=== PATIENT | male | born 1995 | race Caucasian/White ===

== ENCOUNTER 2021-05-07 13:40 | Emergency (ER) | payer OTHER ==
[~2021-05-07] VITALS: Ht 170.2 cm; Wt 74.8 kg
[2021-05-07] MEDS ORDERED: ZYRTEC10 M2 PO (14:26)
[2021-05-07] MEDS ORDERED: METPRE4DP PO (14:26)
[2021-05-07] MEDS ORDERED: AQUAPHOR ITCH R28 GM TOP (14:26)
[2021-05-07] MEDS ORDERED: EPIPEN0.3 MG/0.1 INJ (14:26)
== END 2021-05-07 14:53 | disposition home or self-care (01) ==
LOC: ER 13:40
DX: T78.2XXA Anaphylactic shock, unspecified, initial encounter (principal); X58.XXXA Exposure to other specified factors, initial encounter
CPT/HCPCS: 99283